=== PATIENT | female | born 1990 | race Caucasian/White ===

== ENCOUNTER 2019-05-27 14:08 | Emergency (ER) | payer MEDICAID, OTHER ==
[~2019-05-27] VITALS: Ht 167.6 cm; Wt 90.7 kg
[2019-05-27 14:36] LABS: *BILIRUBIN,URIN NEGATIVE (NEGATIVE); *BLOOD, URINE 2+ (NEGATIVE); *CLARITY,URINE SLIGHTLY CLOUDY (CLEAR); *COLOR,URINE YELLOW (YELLOW); *KETONES,URINE TRACE (NEGATIVE); *UROBILINOGEN,URINE 0.2 E.U./dl (NORMAL); LEUKOCYTE ESTERASE ,URINE NEGATIVE (NEGATIVE); NITRITE, URINE NEGATIVE (NEGATIVE); PH,URINE 5.5 (5.0-8.0); UGLUCOSE NEGATIVE (NEGATIVE)
[2019-05-27 14:53] LABS: RBC,URINE 20-50 /HPF (0-3)
[2019-05-27 14:56] LABS: BACTERIA,URINE NONE SEEN /HPF (NONE SEEN)
[2019-05-27 14:58] LABS: SQUAMOUS EPITHELIAL CELL,UR MANY /HPF (NONE SEEN)
[2019-05-27 14:59] LABS: *URINE HCG, QUAL NEGATIVE (NEGATIVE); MUCUS,URINE FEW /LPF (0-FEW)
--- NOTE | 2019-05-27 15:10 | NUR ---
Patient discharged to home in stable conditon. Written and verbal after care instructions given. Patient verbalizes understanding of instructions.
== END 2019-05-27 15:10 | disposition home or self-care (01) ==
LOC: ER 14:08
DX: N39.0 Urinary tract infection, site not specified (principal)
CPT/HCPCS: 84703; 87086; A4663

== ENCOUNTER 2021-12-16 23:06 | Emergency (ER) | payer OTHER ==
[~2021-12-16] VITALS: Ht 167.6 cm; Wt 102.1 kg
--- NOTE | 2021-12-16 23:25 | NUR ---
Dr. Dobson at bedside for MSE.
[2021-12-16] MEDS ORDERED: SULFAMETH/TRIMETH 800/160 MG TABLET PO ONE (23:30)
[2021-12-16] MEDS ORDERED: SULFAMETH/TRIMETH 800/160 MG TABLET ONE (23:32)
[2021-12-16] MEDS ORDERED: TDAP DIPH,PERTUSS,TET VAC/PF 0.5 ML DISP.SYRIN IM ONE ×2 (23:32→23:45)
[2021-12-16] MEDS ORDERED: SULF1TAB48 PO (23:41)
--- NOTE | 2021-12-17 00:09 | NUR ---
Patient discharged to home in stable condition. Written and verbal after care instructions given. Patient verbalizes understanding of instructions. Stressed follow up or return to ER for worsening s/s. Patient out of ER with steady gait, no acute signs of distress, VSS, all belongings taken, provided with copies of lab results.
[2021-12-17 00:10] VITALS: BP 130/76
== END 2021-12-17 00:11 | disposition home or self-care (01) ==
LOC: ER 23:06
DX: S40.862A Insect bite (nonvenomous) of left upper arm, initial encounter (principal); W57.XXXA Bitten or stung by nonvenomous insect and other nonvenomous arthropods, initial encounter; Y92.89 Other specified places as the place of occurrence of the external cause; Z20.822 Contact with and (suspected) exposure to COVID-19
CPT/HCPCS: 90715; A4663